=== PATIENT | male | born 1995 | race Caucasian/White ===

== ENCOUNTER 2017-01-20 00:50 | Inpatient (IN) | payer BC, OTHER ==
[2017-01-20] VITALS (14 sets, daily range): BP systolic 110–133; BP diastolic 52–81
[~2017-01-20] VITALS: Ht 195.6 cm; Wt 95.7 kg
[2017-01-20] MEDS ORDERED: ONDANSETRON PF 4 MG/2 ML VIAL. IV PRN ×2 (02:45→12:30)
[2017-01-20] MEDS ORDERED: HYDROmorphone 2 MG/ML VIAL IV PRN ×3 (02:45→12:30)
[2017-01-20] MEDS: IV NORMAL SALINE 1000ML BAG 1,000 ML IV SCH ×2 (07:30→11:00)
--- NOTE | 2017-01-20 08:22 | PDOC1 ---
History and Physical Date of Admission Date of Admission DATE: 01/20/17 TIME: 08:16 Identification/Chief Complaint Chief Complaint RLQ pain Problems: Source Source: Patient History of Present Illness History of Present Illness Ky is a 21 yo man with a third episode of RLQ pain. Prior episodes resolved spontaneously. This time it didn't and when he went to the ED @ [facility] a CT showed changes consistent with an acute appendicitis. Past Medical History Cardiovascular: No pertinent hx Pulmonary: No pertinent hx Renal/: No pertinent hx Past Surgical History Past Surgical History: No pertinent history Family History Family History: No Significant Social History Smoke: No Current Problem List Problem List acute appendicitis Problems: Current Medications Current Medications Current Medications Hydromorphone HCl (Dilaudid) 1 mg PRN Q4HRS PRN IV MODERATE PAIN Last administered on 01/20/17t 03:07; Start 01/20/17 at 02:45 Ondansetron HCl (Zofran) 4 mg PRN Q6HRS PRN IV NAUSEA/VOMITING; Start 01/20/17 at 02:45 Sodium Chloride 1,000 ml @ 125 mls/hr Q8H IV ; Start 01/20/17 at 03:00 Allergies Allergies: Coded Allergies: amoxicillin (Verified Allergy, Severe, unsure told not to take, 01/20/17) azithromycin (Verified Allergy, Intermediate, not sure told to avoid, 01/20) peanut (Verified Adverse Reaction, Severe, hives and swollen throat, ) ROS Genitourinary: YES Pain Physical Exam General: Alert, Oriented X3, Cooperative, No acute distress HEENT: Atraumatic Lungs: Clear to auscultation Heart: RRR Abdomen: Soft, Other (TTP in the RLQ) Skin: No rashes Neuro: Normal speech Vitals Vitals Vital Signs Date Time Temp Pulse Resp B/P (MAP) Pulse Ox O2 Delivery O2 Flow Rate FiO2 01/20/17 07:00 97.4 68 18 123/70 (87) 98 Room Air 97.4 Labs Labs WBC at [facility] was 11.[address] shows appendicolith and an enlarged appendix with periappendiceal inflammation VTE Prophylaxis Ordered VTE Prophylaxis Devices: Yes VTE Pharmacological Prophylaxi: No Assessment/Plan Assessment/Plan acute appendicitis Discussed risks with Ky and his parents including but not limited to bleeding, infection, injury to bowel, bladder, possible need for an "open" procedure and the chance that this is NOT an acute appendicitis (i.e.mesenteric adenitis, gastroenteritis) He understands and will proceed CARINA BLUE MD Jan 20, 2017 08:22
[2017-01-20] MEDS ORDERED: IV RINGERS,LACTATED 1000ML 1,000 ML IV SCH (09:24)
[2017-01-20] MEDS ORDERED: MIDAZOLAM HCL/PF 2 MG/2 ML VIAL. IV PRN ×2 (09:30)
[2017-01-20] MEDS ORDERED: MEPERIDINE PF 25 MG/ML VIAL. IV PRN (09:30)
[2017-01-20] MEDS ORDERED: LIDOCAINE 1% 1 ML SYRINGE. ID PRN (09:30)
[2017-01-20] MEDS ORDERED: fentaNYL PF VIAL 100 MCG/2 ML VIAL IV PRN ×2 (09:30)
[2017-01-20] MEDS ORDERED: diphenhydrAMINE 50 MG/ML VIAL IV PRN ×2 (09:30→12:30)
[2017-01-20] MEDS ORDERED: PROCHLORPERAZINE 10 MG/2 ML VIAL. IV PRN (09:30)
--- NOTE | 2017-01-20 09:33 | ACF ---
Admission Forms Criteria ABDOMINAL PAIN Clinical Indications for Admission to Inpatient Care (Place 'X' for any and all applicable criteria): Admission is indicated for ANY ONE of the following(1)(2)(3)(4)(5): [X]I. Inpatient admission required rather than observation care (Also use Abdominal Pain: Observation Care, as appropriate) because of ANY ONE of the following: [ ]a) Severe pain requiring acute inpatient management [X]b) Identification of etiology/finding that requires inpatient care (eg, aortic dissection, free air) [ ]c) Absent bowel sounds with complete ileus(6) [ ]d) Suspected toxic megacolon [ ]e) Severe electrolyte abnormalities requiring inpatient care [ ]f) High fever or infection requiring inpatient admission as indicated by ANY ONE of following(7)(8): [ ] i) Appropriate outpatient or observational care antimicrobial treatment unavailable, not effective, or not feasible [ ] ii) Documented bacteremia [ ] iii) Temperature > 104.9 degrees F (oral) [ ] iv) T >103.1 F (oral) or < 96.8 F(rectal) that does not respond to all emergency treatment measures [ ]g) Signs of intestinal obstruction [B] [ ]h) Hemodynamic instability [ ]i) IV fluid to replace significant ongoing losses (greater than 3 L/m2 per day) (12)(13) [ ]j) Percutaneous or open drainage (eg, abscess, biliary tract ) procedures [ ]k) Parenteral nutrition regimen that must be implemented on inpatient basis [ ]l) Other condition,treatment or monitoring requiring inpatient admission. [ ]II. Peritoneal signs present [ ]III. Surgery needed that cannot be performed on an ambulatory basis. [ ]IV. Evaluation requires patient to not eat or drink for extended period ( eg, more than 24 hours). [ ]V. Contraindications and/or Inappropriate clinical situations for Observational Care in patients with abdominal pain, when ANY ONE of the following is required: [ ]a) Thorough evaluation is required to prevent catastrophic events due to delays in diagnosing (e.g.Mesenteric ischemia) 1,3 [ ]b) Patient with severe pathology or with chronic symptoms unlikely to improve in the ED stay (3) [ ]. General contraindications and/or Inappropriate clinical situations for Observational Care in patients with abdominal pain, when ANY ONE of the following is required: [ ]a) Prediction of prolongation of LOS based on ANY ONE of the following may be considered as a contraindication for observational care 2, 3, 4, 5, 6, 7, 8, 9, 10, 11 [ ]i) Age > 65 yrs. [ ]ii) Patient arriving by ambulance [ ]iii) Patient with high acuity [ ]iv) Patient requiring vital sign monitoring [ ]v) Patient on IV medication [ ]b) Systolic blood pressures 180mmHg 3,12 [ ]c) Patient with altered mental status including delirium and other alteration of consciousness, (3) [ ]d) Patient whose discharge disposition will be to a correction home or rehabilitation home should not be managed in Emergency Department Observation Unit. CMS rule requires 3 days hospital stay before such placement.3,13 [ ]e) Patient with failure to thrive due to broad array of etiologies 3,16,17 [ ]f) Inability to ambulate 3,14 Extended stay beyond goal length of stay may be needed for(2)(3): [ ]a) Persistent abdominal pain with suspected intra-abdominal process [ ]b) Diagnosed condition requiring continued stay (e.g., pancreatitis, complicated diverticulitis) [ ]c) Surgery (e.g., colectomy) The original [employer] [facility] content created by [employer] has been revised. The portions of the content which have been revised are identified through the use of italic text or in bold, and [facility] has neither reviewed nor approved the modified material.All other unmodified content is copyright [employer]. Please see references footnoted in the original [employer] [facility] [facility] edition 2016 Admission Criteria Met?: Yes MODE FLANAGAN Jan 20, 2017 09:32
[2017-01-20] MEDS ORDERED: fentaNYL PF VIAL 100 MCG/2 ML VIAL ONE (10:12)
[2017-01-20] MEDS ORDERED: MIDAZOLAM HCL/PF 2 MG/2 ML VIAL. ONE (10:12)
[2017-01-20] MEDS ORDERED: ROCURONIUM 50 MG/5 ML VIAL. ONE (10:12)
[2017-01-20] MEDS ORDERED: LIDOCAINE 2% PF Vial for OR 5 ML VIAL. ONE (10:12)
[2017-01-20] MEDS ORDERED: PROPOFOL 20 ML IV ONE (10:12)
[2017-01-20] MEDS ORDERED: DEXAMETHASONE SOD PHOS 20 MG/5 ML VIAL. ONE (10:12)
[2017-01-20] MEDS ORDERED: ONDANSETRON PF 4 MG/2 ML VIAL. ONE (10:12)
[2017-01-20] MEDS ORDERED: BUPIVAC MPF-EPI 0.5%-1:200000 30 ML VIAL. ONE (11:17)
[2017-01-20] MEDS ORDERED: DESFLURANE 61 TO 120 MINUTES IH ONE (11:30)
[2017-01-20] MEDS ORDERED: NEOSTIGMINE METHYLSULFATE 5 MG/5 ML SYRINGE. ONE (11:35)
[2017-01-20] MEDS ORDERED: GLYCOPYRROLATE 1 MG/5 ML VIAL. ONE (11:36)
[2017-01-20] MEDS: fentaNYL PF VIAL 100 MCG/2 ML VIAL IV PRN ×2 (12:27→12:35)
--- NOTE | 2017-01-20 12:28 | PDOC ---
BRIEF OPERATIVE NOTE Date: Jan 20, 2017 Pre-Op Diagnosis acute appendicitis Post-Op Diagnosis same Procedure Performed l/.s appendectomy Surgeon Pro Anesthesia Type: General Blood Loss 20cc IV Fluid 1100cc Urine Output 200cc Specimens Obtained appendix Findings acute suppurative appendicitis Complications none Additional Remarks Wk # [id number] CARINA BLUE MD Jan 20, 2017 12:28
[2017-01-20] MEDS ORDERED: 0.9 % SODIUM CHLORIDE 10 ML DISP.SYRIN. IV PRN (12:30)
[2017-01-20] MEDS ORDERED: diphenhydrAMINE HCL 25 MG CAPSULE PO PRN (12:30)
[2017-01-20] MEDS ORDERED: oxyCODONE/APAP 5/325 1 TAB TABLET PO PRN (12:30)
[2017-01-20] MEDS ORDERED: DEXTROSE 50% 25 GM / 50ML DISP.SYRIN. IV PRN (12:30)
[2017-01-20] MEDS: MORPHINE SULFATE 4 MG/ML DISP.SYRIN. IV PRN ×2 (12:46→12:56)
--- NOTE | 2017-01-20 13:52 | OP ---
DATE OF SURGERY: 01/20/2017 PREOPERATIVE DIAGNOSIS: Acute appendicitis. POSTOPERATIVE DIAGNOSIS: Acute appendicitis. PROCEDURE: Laparoscopic appendectomy. SURGEON: Toby lBue MD ANESTHESIA: General endotracheal. ESTIMATED BLOOD LOSS: 20. IV FLUIDS: 1100. URINE OUTPUT: 200. INDICATIONS: The patient is a 21-year-old with right lower quadrant pain and CT evidence suggesting appendicitis, brought for appendectomy. OPERATIVE FINDINGS: He did indeed have an acute suppurative appendix, which was tightly wrapped in tail of omentum. There is a moderate amount of turbid fluid in the pelvis. Visual inspection of the remainder of the abdomen failed to reveal obvious abnormalities after report. DESCRIPTION OF PROCEDURE: The patient brought to the operating suite, given a general endotracheal anesthetic. Lamb catheter placement and drainage, the abdomen prepped and draped in usual sterile fashion. An infraumbilical incision was infiltrated with local anesthetic, sharply incised and dissection carried down to the anterior sheath. A 5 mm Visiport was used to gain access into the abdominal cavity, taking care to avoid injury to abdominal contents. Pneumoperitoneum established. Camera inserted and inspection carried out with results as noted above. With the table in Trendelenburg rolled to left, the suprapubic and left lower quadrant ports were placed under direct vision. The omental wrap around the appendix was gently swept off the appendix with blunt dissection. A medium large clip was used for hemostasis, omentum was divided. This allowed exposure of the base of the appendix. A rent was created between the appendiceal base and the mesoappendix and the Endo-SOFÍA stapler with a tissue load was passed and used to amputate the base of the appendix. Good hemostasis was present. The mesoappendix was then similarly divided with an Endo-SOFÍA using vascular load x 2. Intra-abdominal pressure decreased to 6 cm of water. No bleeding from the appendiceal stump or from the mesoappendix was seen. Table returned to level. Appendix delivered through the epigastric incision. A 19-Khmer round Baron drain was brought through right-sided stab wound and placed in the pericolic gutter and down into the true pelvis, secured to the skin with a silk stitch. Umbilical incision closed with interrupted 0 Vicryl suture. Intra-abdominal pressure decreased to 6 cm of water. No bleeding seen from the umbilical closure site or from the drain site. Left lower quadrant port removed. No bleeding seen. Abdomen decompressed, camera slowly removed, no bleeding seen. Incisions closed with subcuticular 4-0 Monocryl. Steri-Strips and sterile dressings applied. Lamb catheter removed. The patient was awakened from his anesthetic and taken to the recovery room in satisfactory condition. TOBY BLUE MD DR: GEORGINA/africa JOB#: [id number] / [id number]
[2017-01-20] MEDS: POTASSIUM CL 20MEQ-0.45% NACL 1,000 ML IV SCH (14:00)
[2017-01-20] MEDS: DOCUSATE SODIUM 100 MG CAPSULE. PO SCH (21:29)
[2017-01-20] MEDS: oxyCODONE/APAP 5/325 1 TAB TABLET PO PRN (21:33)
[2017-01-20] MEDS ORDERED: ENOXAPARIN 40 MG/0.4 ML SYRINGE. SQ SCH (22:00)
[2017-01-21] MEDS: oxyCODONE/APAP 5/325 1 TAB TABLET PO PRN ×3 (03:22→16:59)
[2017-01-21 03:23] VITALS: BP 118/73
[2017-01-21 07:00] VITALS: BP 132/81
[2017-01-21] MEDS: DOCUSATE SODIUM 100 MG CAPSULE. PO SCH (08:56)
--- NOTE | 2017-01-21 09:25 | DISCH ---
DISCHARGE INSTRUCTIONS Condition on Discharge Condition on Discharge: Stable Activity After Discharge Activity Instructions for Disc: Activity as tolerated, Avoid exertion Lifting Instructions after Dis: No heavy lifting Driving Instructions after Dis: Do not drive Diet after Discharge Diet after Discharge: Regular Wound Incision Care Other wound/incision instructi: anna showchristian Follow-Up Follow up with: Pro with [facility] output by phone tomorrow CARINA BLUE MD Jan 21, 2017 09:25
--- NOTE | 2017-01-21 09:29 | PDOC3 ---
Discharge Summary* Date of Admission: Jan 20, 2017 Date of Discharge: Jan 21, 2017 Admitting Diagnosis acute appendicitis Final Diagnosis same Procedures l/s appendectomy Brief Hospital Course Mr. Roldan is a 21 old male who presented with acute appendicitis. He underwent l/s appendectomy. Dismissed on his first POD with HALIMA in place to be removed in the office Disposition/Orders: D/C to Home CONDITION AT DISCHARGE: Improved Diet: Regular FOLLOW UP APPOINTMENT: call tomorrow with [facility]IM[facility] output Time Spent Total time spent with patient 10 minutes for coordination of care, counseling, and education. CARINA BLUE MD Jan 21, 2017 09:29
[2017-01-21] MEDS: POTASSIUM CL 20MEQ-0.45% NACL 1,000 ML IV SCH ×2 (10:00)
[2017-01-21 11:00] VITALS: BP 122/68
[2017-01-21 15:00] VITALS: BP 116/48
--- NOTE | 2017-01-23 22:49 | PATHOLOGY ---
PATHOLOGY REPORT * * * * * * * * FINAL DIAGNOSIS: Appendix "appendix, appendectomy": - Acute suppurative appendicitis with acute inflammation extending into the periappendiceal fat with microabscess formation. ([facility]; d/t: 01/23/2017) REPORT ELECTRONICALLY SIGNED BY: Keegan Mireles M.D. DATE/TIME: 01/23/2017 22:48 * * * * * * * * GROSS PATHOLOGY: Received in formalin labeled "Tony Houston, appendix," is an appendix measuring 6.0 cm in length and 1.1 cm in diameter with a large amount of attached mesoappendix, which is covered by large focal areas of sanderson tejeda exudate. The serosal surface is sanderson tjeeda, focally hemorrhagic and showing areas of exudate and possible focal necrosis. Sectioning reveals a pinpoint lumen throughout filled with reddish brown hemorrhagic material. The distal tip contains a partially calcified fecalith. Director Ambulatory sections are submitted in cassette A1. ([facility]; 01/22/17) INITIAL CPT CODE(S): A; 88403 Professional services performed [place] [facility] [address] Technical services performed by [facility] at [address] [place] [address]. SPECIMEN(S) RECEIVED: A.Appendix CLINICAL HISTORY: Acute appendicitis PATIENT: TONY HOUSTON /AGE: 108/29/1995 (Age: 21) PATIENT #: [id number] ALT CASE #: SPECIMEN COLLECTION DATE: 01/20/2017 SPECIMEN RECEIVED DATE: 01/22/2017 [facility] - [address] [place] [address] - PHONE: [phone] * * * END OF REPORT * * *
== END 2017-01-21 17:15 | disposition home or self-care (01) | DRG 343 ==
LOC: 4 NORTH 02:06
PROVIDERS: ADMIT Surgery; ATTEND Surgery
PROC: 0DTJ4ZZ Resection of Appendix, Percutaneous Endoscopic Approach (ICD-10-PCS; principal; 2017-01-20 10:30)
DX: K35.80 Unspecified acute appendicitis (principal)
CPT/HCPCS: 88304; C1782; J0780; J1100; J1170; J1200; J1650; J2250; J2270; J2405; J2704; J2710; J3010; J3490; J7030; J7120; Q0163